=== PATIENT | female | born 1975 | race Caucasian/White ===

== ENCOUNTER → 2017-02-21 | Outpatient (CLI) | payer MEDICARE, OTHER ==
[~2017-02-21] MED LIST: ADVAIR 250-501 EACH INH; ASPIR 8181 MG PO; DILTIAZEM ER360 MG PO; IBUPROFEN800 MG PO; IMDUR ER TAB 3030 MG PO; LIPITOR TAB 2020 MG PO; PRILOSEC OTC20 MG PO; TAMBOCOR 100 M100 MG PO; VITAMIN D2000 UNI1 PO; VITAMIN D50000 UNIT PO; ZYRTEC10 MG PO
== END ==
LOC: KOH-I 11:56
DX: M25.562 Pain in left knee (principal)
CPT/HCPCS: 73564

== ENCOUNTER 2017-04-09 14:26 | Emergency (ER) | payer MEDICARE, OTHER ==
[2017-04-09 16:20] LABS: HEMOGLOBIN 13.7 gm/dl (12.3-15.3); RED BLOOD COUNT 4.47 M/UL (4.00-5.10); WHITE BLOOD COUNT 13.5 K/UL (4.5-11.0)
[2017-04-09 16:32] LABS: BUN/CREATININE RATIO 10 (0-10)
== END 2017-04-09 18:00 | disposition home or self-care (01) ==
LOC: ER1 14:26
PROVIDERS: Physician Assistant
DX: J18.9 Pneumonia, unspecified organism (principal); I10 Essential (primary) hypertension; J45.909 Unspecified asthma, uncomplicated; I25.119 Atherosclerotic heart disease of native coronary artery with unspecified angina pectoris; E78.5 Hyperlipidemia, unspecified; Z88.0 Allergy status to penicillin; Z88.2 Allergy status to sulfonamides; Z88.6 Allergy status to analgesic agent; Z79.899 Other long term (current) drug therapy; R11.10 Vomiting, unspecified
CPT/HCPCS: 36415; 71020; 80053; 81001; 83605; 84484; 84703; 85025; 87040; 87081; 87880; 93005; 96360; 96361; 99285

== ENCOUNTER → 2021-03-15 | Outpatient (CLI) | payer MEDICARE, OTHER | LOC: CT 12:28 | DX: R10.9 Unspecified abdominal pain (principal) | CPT/HCPCS: 36415; 82565; 84520; Q9967 ==

== ENCOUNTER → 2021-09-13 | Outpatient (CLI) | payer MEDICARE, OTHER ==
[2021-09-13 16:50] LABS: HEMOGLOBIN 16.1 gm/dl (12.3-15.3); RED BLOOD COUNT 4.8 M/UL (4.00-5.10); WHITE BLOOD COUNT 11.9 K/UL (4.5-11.0)
[2021-09-13 17:19] LABS: BUN/CREATININE RATIO 16 (0-10); GAMMA GLUTAMYL TRANSPEPTIDASE 46 U/L (7-64)
== END ==
LOC: LAB 16:04
PROVIDERS: Physician Assistant
DX: R79.89 Other specified abnormal findings of blood chemistry (principal); R10.9 Unspecified abdominal pain; R16.0 Hepatomegaly, not elsewhere classified
CPT/HCPCS: 36415; 80053; 80074; 82103; 82728; 82784; 82977; 83516; 83540; 83550; 85025; 86038

== ENCOUNTER → 2021-11-23 | Outpatient (CLI) | payer MEDICARE, OTHER ==
[2021-11-23 10:13] LABS: HEMOGLOBIN 16.3 gm/dl (12.3-15.3); RED BLOOD COUNT 4.84 M/UL (4.00-5.10); WHITE BLOOD COUNT 12.6 K/UL (4.5-11.0)
== END ==
LOC: LAB 09:08
PROVIDERS: Physician Assistant
DX: K76.0 Fatty (change of) liver, not elsewhere classified (principal)
CPT/HCPCS: 36415; 85027; 85610

== ENCOUNTER → 2022-05-29 | Outpatient (CLI) | payer MEDICARE, OTHER ==
[2022-05-29 12:04] LABS: HEMOGLOBIN 16.7 gm/dl (12.3-15.3); WHITE BLOOD COUNT 12.8 K/UL (4.5-11.0)
== END ==
LOC: LAB 11:36
PROVIDERS: Nurse Practitioner Family
DX: E11.9 Type 2 diabetes mellitus without complications (principal); E78.5 Hyperlipidemia, unspecified; I10 Essential (primary) hypertension; E53.8 Deficiency of other specified B group vitamins; E55.9 Vitamin D deficiency, unspecified
CPT/HCPCS: 36415; 80061; 82570; 82607; 84156; 84439; 84443; 85025